=== PATIENT | female | born 1995 | race Caucasian/White ===

== ENCOUNTER 2022-03-07 03:11 | Inpatient (IN) ==
[2022-03-07] MEDS ORDERED: LIDOCAINE 1% LOCAL 20 ML VIAL INFIL PRN (05:39)
[2022-03-07] MEDS ORDERED: OXYTOCIN 30 UNITS/500 ML BAG IV PRN ×3 (05:39→17:07)
[2022-03-07] MEDS ORDERED: PENICILLIN G POTASSIUM 6 MU in DEXTROSE 5% 250 ML IV STA (05:39)
[2022-03-07] MEDS: LACTATED RINGER'S 1,000 ML IV PRN ×2 (06:12→11:01)
[2022-03-07 06:19] LABS: Hematocrit (blood only) 33.4 % (34.1-44.9); Hemoglobin 11.3 g/dl (12.0-16.0); Mean Corpuscular Hemoglobin 30.9 pg (25.0-34.0); Mean Corpuscular Hgb Conc 33.8 g/dL (32.0-36.0); Mean Corpuscular Volume 91.3 fL (80.0-100.0); Mean Platelet Volume 11.2 fL (9.4-12.3); Platelet Count 301 K/uL (130-400); RDW Coefficient of Variation 13.9 % (11.5-14.5); RDW Standard Deviation 45.6 fL (36.4-46.3); Red Blood Count 3.66 M/uL (3.93-5.22); White Blood Count 18.89 K/ul (4.8-10.8)
--- NOTE | 2022-03-07 07:31 | History & Physical Report ---
Date of Service March 07, 2022 Assessment & Plan (1) PROM (premature rupture of membranes): (2) Post term over 40 weeks: (3) Group beta Strep positive: Plan admit, iv, labs. rec pitocin induction. pt agrees. fhts categ 1. Admission and Anticipated Discharge Date Admission Date: March 07, 2022 History of Present Illness Chief Complaint: leaking fluid since 1AM Primary Care Provider: WES Reed 26yo at 40+wks ega presents to L&D with cc of leaking clear fluid on and off and some ctx. Patient notes getting up from bed with some gushing of fluid. Not soaking pads. No bleeding. +FM. PNC c/b 1. GBS pos 2. hypothyroid 3. tobacco PNL rh pos, ri, gbs pos OBH: g1 GYNH: no stds, nl paps Allergies Allergy/AdvReac Type Severity Reaction Status Date / Time prednisone Allergy Intermediate legs went Verified 03/01/22 15:18 numb Home Medications Medication Instructions Recorded Confirmed Type albuterol sulfate 90 mcg/actuation 2 puff inhalation Q6H PRN 02/17/21 03/07/22 Rx aerosol inhaler (Ventolin HFA) Shortness Of Breath #18 grams prenat.vits,laurie,mij-qjor-[id number] 1 tab PO DAILY 09/21/21 03/07/22 History levothyroxine 88 mcg tablet 88 mcg PO DAILY #90 tabs 10/20/21 03/07/22 Rx lansoprazole 30 mg capsule,delayed 30 mg PO DAILY #30 caps 01/25/22 03/07/22 Rx release (Prevacid) Patient History Medical History Anxiety Asthma inhaler prn Back problem COVID-19 (05/13/20) Symptoms started may 09, 2020 Depression Elevated TSH First noted 05/06/2019-normal T4 GERD (gastroesophageal reflux disease) History of bronchitis Irregular menstrual bleeding Scoliosis Tonsillith Surgical History History of esophagogastroduodenoscopy (EGD) History of tooth extraction Family History (Updated 12/07/21 @ 15:51 by Ade Aguila RN) Grandfather (Maternal) Myocardial infarction Grandmother Myocardial infarction Grandfather (Paternal) Diabetes Family hx of colon cancer Grandmother (Paternal) Diabetes Sister Diabetes Aunt Diabetes Cancer Mother Diabetes Father Diabetes Other Family history non-contributory Heart disease No family history of adverse response to anesthesia Denies family history of Ovarian cancer Prostate cancer Breast cancer Lung cancer Colorectal cancer Social History Smoking Status: Current every day smoker Tobacco Type: Cigarettes Age Started Using Tobacco: 20; Age Quit Using Tobacco: 26; packs per day: 0.5; Cigarettes Per Day: 10; Second Hand Exposure: No; Hx Alcohol Use: No Hx Substance Use: No Preferred Language: Stateless Communication Ability: Effective Visual Impairment: No Limitations Hearing Ability: Normal Welder Operator Required: No Beliefs That Will Affect Care: None marital status: Single marital status details: kaity Ghotra (20) [phone] Current Living Situation: Significant Other Current Living Situation Comment: lives with kaity and his parents, cat-kaity alana nging litter current occupational status: employed 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[employer] How many Children do You have: 0 Other Information That Helps Us Care for You: No Feels Safe at Home: Yes Safety Concerns: Feels Safe At This Time Childhood Exposure to Second-Hand Smoke: Yes caffeine: Yes (coffee,soda) during the past year weight has: remained stable Dental Care, Regularly: Yes Physical Activity Frequency: Does not Exercise Seatbelt Use: sometimes Sunscreen Use: No Assistive Devices: None and Glasses Review of Systems as per Subjective / HPI Physical Exam Constitutional: WD/WN, vitals as above Respiratory: normal respiratory effort, lungs clear to auscultation Cardiovascular: Rate/Rhythm: regular rate and regular rhythm Gastrointestinal (Abdomen): soft gravid nt Musculoskeletal: no edema nontender calves Neurologic: grossly normal Psychiatric: A+Ox3, euthymic affect Genitourinary: OB Exam Abdomen: + vertex and + estimated weight (7-8#) Manual OB Exam: + cervical dilation 1 cm, + cervical effacement 60% and + stat ion -2 OB Exam Monitor Tracing: + external FHT monitor used, + external uterine monitor used (q2-4), + category I and + normal FHT variability SSE mucus and watery fluid noted. +nitrazine. +ferning. Results & Data ([facility]) Vital Signs (Past 12 Hours) Vital Signs Temp Pulse Resp BP 03/07/22 03:39 98.1 F 92 H 18 122/83 03/07/22 07:05 75 123/78 03/07/22 06:25 98.2 F 77 18 119/77 03/07/22 03:30 98.1 F 92 H 18 122/83 Coding Level of Care Code None Diagnoses PROM (premature rupture of membranes) O42.90 Post term over 40 weeks O48.0 Group beta Strep positive B95.1
[2022-03-07] MEDS ORDERED: fentaNYL citrate 100 MCG/2 ML VIAL ONE (09:54)
[2022-03-07] MEDS ORDERED: SODIUM CHLORIDE 0.9% INJ 10 ML VIAL ONE (09:54)
[2022-03-07] MEDS ORDERED: ePHEDrine sulfate 50 MG/ML AMP ONE (09:54)
[2022-03-07] MEDS ORDERED: fentaNYL 2MCG/ML ROPIVACAINE 1.25MG/ML 100 ML BAG EPI ONE (09:55)
[2022-03-07] MEDS ORDERED: LIDOCAINE 2%/EPINEPHRINE 1:200,000 20 ML SDV ONE (09:55)
[2022-03-07] MEDS ORDERED: BUPIVACAINE 0.25% 30 ML VIAL ONE (09:55)
--- NOTE | 2022-03-07 10:02 | Anesthesiology Consultation ---
Date of Service March 07, 2022 Assessment & Plan (1) Encounter for pre-operative examination: Chart Review Chart Review: Acceptable Risk for Labor Epidural History Height/Weight Height: 5 ft 2 in Weight: 93.44 kg Allergies Allergy/AdvReac Type Severity Reaction Status Date / Time prednisone Allergy Intermediate legs went Verified 03/01/22 15:18 numb Medications Home Medications Medication Instructions Recorded Confirmed Last Taken albuterol sulfate 90 mcg/actuation 2 puff inhalation Q6H PRN 02/17/21 03/07/22 Unknown aerosol inhaler (Ventolin HFA) Shortness Of Breath #18 grams prenat.vits,laurie,mwf-umwh-unxib 1 tab PO DAILY 09/21/21 03/07/22 03/06/22 levothyroxine 88 mcg tablet 88 mcg PO DAILY #90 tabs 10/20/21 03/07/22 03/06/22 lansoprazole 30 mg capsule,delayed 30 mg PO DAILY #30 caps 01/25/22 03/07/22 03/06/22 release (Prevacid) Active Medications Generic Name Dose Route Start Last Admin Trade Name Rivas PRN Reason Stop Dose Admin Lactated Ringer's 1,000 mls @ 125 mls/hr 03/07/22 05:39 03/07/22 06:12 Lr IV 03/09/22 05:38 125 mls/hr .Q8H PRN Administration L&D Protocol Protocol Oxytocin 30 units in 500 mls @ 5 mls/hr 03/07/22 05:48 03/07/22 07:30 Pitocin IV 04/06/22 05:47 0.3 units/hr .Q24H PRN 5 mls/hr Labor Induction/Augmentation Titration Protocol 0.3 UNITS/HR Past Medical History Medical History Anxiety Asthma inhaler prn Back problem COVID-19 (05/13/20) Symptoms started may 09, 2020 Depression Elevated TSH First noted 05/06/2019-normal T4 GERD (gastroesophageal reflux disease) History of bronchitis Irregular menstrual bleeding Scoliosis Tonsillith Past Family History Family History Grandfather (Maternal) Myocardial infarction Grandmother Myocardial infarction Grandfather (Paternal) Diabetes Family hx of colon cancer Grandmother (Paternal) Diabetes Sister Diabetes Aunt Diabetes Cancer Mother Diabetes Father Diabetes Other Family history non-contributory Heart disease No family history of adverse response to anesthesia Denies family history of Ovarian cancer Prostate cancer Breast cancer Lung cancer Colorectal cancer Past Surgical History Surgical History History of esophagogastroduodenoscopy (EGD) History of tooth extraction Social History Smoking Status: Current every day smoker tobacco type: cigarettes Smoking cigarettes per day: 10 Hx Alcohol Use: No alcohol intake frequency: holidays/special occasions only Hx Substance Use: No substance use type: does not use Physical Exam Vital Signs Last Vital Signs Temp 36.8 C 03/07/22 09:06 Pulse 79 03/07/22 09:06 Resp 20 03/07/22 09:06 BP 127/76 03/07/22 09:06 Testing Laboratory Results 03/07/22 06:02
[2022-03-07] MEDS: PENICILLIN G POTASSIUM 3 MU in DEXTROSE 5% 100 ML IV PRN ×2 (10:05→14:05)
[2022-03-07] MEDS ORDERED: fentaNYL 2MCG/ML ROPIVACAINE 1.25MG/ML 100 ML BAG EPI PRN (11:10)
[2022-03-07] MEDS ORDERED: NALOXONE HCL 0.4 MG/1 ML VIAL/CARP IV PRN (11:10)
[2022-03-07] MEDS ORDERED: ePHEDrine sulfate 50 MG/ML AMP IV PRN (11:10)
[2022-03-07] MEDS ORDERED: NALOXONE HCL 1 MG in SODIUM CHLORIDE 0.9% 1000ML 1,000 ML IV PRN (11:10)
[2022-03-07] MEDS ORDERED: ONDANSETRON INJ 2 MG/ML 2 ML VIAL IV PRN (11:10)
[2022-03-07] MEDS ORDERED: LACTATED RINGER'S 1,000 ML IV SCH (17:07)
[2022-03-07] MEDS ORDERED: ACETAMINOPHEN 325 MG TAB PO PRN (17:07)
[2022-03-07] MEDS ORDERED: oxyCODONE/ACETAMINOPHEN 5mg/325mg TAB PO PRN (17:07)
[2022-03-07] MEDS ORDERED: bisacodyL 10 MG SUPP PR PRN (17:07)
[2022-03-07] MEDS ORDERED: BENZOCAINE 20% AER SPR 82.5 GM CAN EXT PRN (17:07)
[2022-03-07] MEDS ORDERED: DIPHTHERIA/TETANUS/PERTUSSIS 0.5 ML SYR/VIAL IM ONE (17:07)
[2022-03-07] MEDS ORDERED: HYDROCORTISONE ACETATE 25 MG SUPP PR PRN (17:07)
[2022-03-07] MEDS ORDERED: ALBUTEROL HFA 8 GM INHALER INH PRN (17:07)
--- NOTE | 2022-03-07 17:19 | Delivery Summary ---
Vaginal Delivery Summary Date of Service March 07, 2022 Vaginal Delivery Summary DIAGNOSES: 1. Rahman intrauterine at 40w3d gestation. 2. PROM, followed by augmentation of labor. 3. Group B Streptococcus Pos, adequately treated. PROCEDURE: Spontaneous vaginal delivery and repair of partial 3rd degree laceration. SURGEON: Janey Escoto MD. TYPING POOL SUPERVISOR: None. ESTIMATED BLOOD LOSS: 250 mL. COMPLICATIONS: None. PLACENTA: Spontaneous and intact with a 3-vessel cord. DISPOSITION: Stable to labor and delivery. DESCRIPTION: The patient pushed well and brought the head to in DOA position. The infant's head was allowed to deliver with contraction force and no further active pushing, with the perineum protected during this time. Despite protection of the perineum, a significant natural tear in the perineal skin did occur as the L fist presented compound alongside the face, and was located right at the perineum. There was a loose nuchal cord. The left shoulder was anterior. The shoulders and body delivered without any difficulty, and the infant was placed on the maternal abdomen. It was vigorous and moving all extremities, and making respiratory efforts. The cord was doubly clamped by the MD and then cut by the FOB. The placenta delivered spontaneously and was noted to be intact and with a 3VC. The cervix, vagina and perineum were examined and were found to have a second degree laceration plus an abrasion of the capsule of the anal sphincter, thus a "partial third degree." The sphincter itself was intact; the disrupted portion of the capsule was oversewn with a figure of eight suture of 1-vicryl. The remaining second degree laceration, which extended about mcfp up the vaginal vault, was repaired in the usual manner with 3-0 vicryl in a running locked manner on the posterior vagina, with a 2-0 vicryl used to create several crown sutures rebuilding the perineal body, and subcuticular closure of the perineal skin. Digital exam confirmed there was no anal/rectal injury and no suture in the rectum after repair. The fundus was firm and lochia minimal immediately after delivery. [facility] [place] Vaginal Delivery Codes: 85140 global code for the antepartum, delivery, and post-
--- NOTE | 2022-03-07 17:28 | Anesthesia Procedure Note ---
Date of Service March 07, 2022 Anesthesia Post Epidural Note Vital Signs Vital Signs: Temp Pulse Resp BP Pulse Ox 36.8 C 88 20 126/72 97 03/07/22 15:02 03/07/22 17:14 03/07/22 15:02 03/07/22 17:14 03/07/22 16:44 Notes Mental Status: alert / awake / arousable and participated in evaluation Nausea / Vomiting: adequately controlled Pain: adequately controlled Airway Patency, RR, SpO2: stable & adequate BP & HR: stable & adequate Hydration State: stable & adequate Neuraxial Anesthesia: was administered and sensory block is resolving Anesthetic Complications: no major complications apparent Epidural: Removed without complications and With tip intact
[2022-03-07] MEDS: IBUPROFEN 600 MG TAB PO PRN (21:08)
[2022-03-07] MEDS: DOCUSATE SODIUM 100 MG CAP PO SCH (21:08)
[2022-03-08] MEDS: IBUPROFEN 600 MG TAB PO PRN ×4 (02:21→20:18)
--- NOTE | 2022-03-08 06:30 | Obstetrical Progress Note ---
Date of Service <Master Jack DO - Last Filed: 03/08/22 06:29> March 08, 2022 Assessment & Plan <Master Jack DO - Last Filed: 03/08/22 06:29> (1) Vaginal delivery: - Feels well today. Eating well, voiding well, ambulating well. - Pain well controlled with ibuprofen 600mg Q4H PRN - Routine care -- OOB, ambulation, diet progression as tolerated - After discharge will have 6 week follow-up with Dr. Escoto. Day #:: 1 <Janey Escoto MD - Last Filed: 03/08/22 07:10> (1) Vaginal delivery: Subjective <Master Jack DO - Last Filed: 03/08/22 06:29> Ambulation: ambulating normally Voiding: no voiding problems Passing Gas:: Yes Diet Tolerance:: regular diet Lochia:: Small Feeding Type:: breast feeding Current Pain Level(1-10): 4 Review of Systems Denies fever, chills, sweats Denies shortness of breath, difficulty breathing, chest pain, palpitations, chest pressure. Denies breast pain. Denies dysuria. Denies headache or changes in vision. Physical Exam <Master Jack DO - Last Filed: 03/08/22 06:29> General: Alert, oriented. No acute distress. Cardiac: Regular rate and rhythm, no murmurs/rubs/gallops. Respiratory: Clear to auscultation bilaterally a/p, no wheezes/rales/rhonchi. No increased work of breathing. Symmetrical chest rise. No respiratory distress. Abdomen: Soft, nontender, nondistended. Bowel sounds present. Uterus: Uterine fundus firm, palpable 3 cm below umbilicus. Lower Extremities: No lower extremity edema or swelling. No deep calf pain. Charlie's negative bilaterally. Results & Data ([facility]) <Master Jack DO - Last Filed: 03/08/22 06:29> Vital Signs (Past 12 Hours) Vital Signs Temp Pulse Pulse Resp BP BP Pulse Ox 03/08/22 03:20 36.5 C 95 H 16 126/80 97 03/07/22 23:15 36.9 C 85 16 112/72 97 03/07/22 19:45 37.2 C 111 H 18 134/84 97 03/07/22 19:15 37.1 C 120 H 18 128/77 03/07/22 19:00 100 H 113/68 03/07/22 18:45 94 H 128/72 03/07/22 18:29 99 H 128/87 O2 Del Method 03/08/22 03:20 Room Air 03/07/22 23:15 Room Air 03/07/22 19:45 Room Air 03/07/22 19:15 03/07/22 19:00 03/07/22 18:45 03/07/22 18:29 <Janey Escoto MD - Last Filed: 03/08/22 07:10> Co-Signing Physician Notes Resident Physician Supervision Note: I interviewed and examined the patient. Discussed with Dr. Jack and agree with findings and plan as documented in the note. Any exceptions or clarifications are listed here: [ ] Documented By: Janey Escoto MD, FACOG Resident Activity Tracking <Master Jack DO - Last Filed: 03/08/22 06:29> Resident Involvement: Resident Care Provided Care Provided: OB Delivery
[2022-03-08 06:34] LABS: Hematocrit (blood only) 25.9 % (34.1-44.9); Hemoglobin 8.8 g/dl (12.0-16.0); Mean Corpuscular Hemoglobin 30.8 pg (25.0-34.0); Mean Corpuscular Volume 90.6 fL (80.0-100.0); Mean Platelet Volume 11.5 fL (9.4-12.3); Platelet Count 230 K/uL (130-400); RDW Coefficient of Variation 13.7 % (11.5-14.5); RDW Standard Deviation 45.1 fL (36.4-46.3); Red Blood Count 2.86 M/uL (3.93-5.22); White Blood Count 17.24 K/ul (4.8-10.8)
[2022-03-08] MEDS: PRENATAL VITAMIN 1 TAB PO SCH (08:26)
[2022-03-08] MEDS: DOCUSATE SODIUM 100 MG CAP PO SCH ×2 (08:26→20:18)
[2022-03-08] MEDS: LEVOTHYROXINE SODIUM 88 MCG TABLET PO SCH (08:38)
[2022-03-08] MEDS: PANTOprazole 40 MG TAB PO SCH (08:38)
[2022-03-08] MEDS ORDERED: MEASLES, MUMPS & RUBELLA VIRUS VIAL SQ ONE (08:59)
[2022-03-08] MEDS ORDERED: PRENATAL VITAMIN 1 TAB PO SCH (09:00)
[2022-03-08] MEDS ORDERED: bisacodyL 5 MG TABEC PO SCH (20:00)
[2022-03-09] MEDS: IBUPROFEN 600 MG TAB PO PRN (06:26)
--- NOTE | 2022-03-09 06:50 | Obstetrical Progress Note ---
Date of Service <Master Jack DO - Last Filed: 03/09/22 07:47> March 09, 2022 Assessment & Plan <Master Jack DO - Last Filed: 03/09/22 07:47> (1) Vaginal delivery: - Feels well today. Eating well, voiding well, ambulating well. - Pain well controlled with ibuprofen 600mg Q4H PRN - Routine care -- OOB, ambulation, diet progression as tolerated - After discharge will have 6 week follow-up with Dr. Escoto. - Will D/C today. Day #:: 2 <Clarissa Persaud, DO - Last Filed: 03/09/22 08:14> (1) Vaginal delivery: Subjective <Master Jack DO - Last Filed: 03/09/22 07:47> Ambulation: ambulating normally Voiding: no voiding problems Passing Gas:: Yes Diet Tolerance:: regular diet Lochia:: Small Feeding Type:: breast feeding Current Pain Level(1-10): 2 Review of Systems Denies fever, chills, sweats Denies shortness of breath, difficulty breathing, chest pain, palpitations, chest pressure. Denies breast pain. Denies dysuria. Denies headache or changes in vision. Physical Exam <Master Jack DO - Last Filed: 03/09/22 07:47> General: Alert, oriented. No acute distress. Cardiac: Regular rate and rhythm, no murmurs/rubs/gallops. Respiratory: Clear to auscultation bilaterally a/p, no wheezes/rales/rhonchi. No increased work of breathing. Symmetrical chest rise. No respiratory distress. Abdomen: Soft, nontender, nondistended. Bowel sounds present. Uterus: Uterine fundus firm, palpable 3 cm below umbilicus. Lower Extremities: No lower extremity edema or swelling. No deep calf pain. Charlie's negative bilaterally. Results & Data ([facility]) <Master Jack DO - Last Filed: 03/09/22 07:47> Vital Signs (Past 12 Hours) Vital Signs Temp Pulse Resp BP Pulse Ox O2 Del Method 03/08/22 23:30 36.7 C 85 18 122/77 97 Room Air <Clarissa Persaud, DO - Last Filed: 03/09/22 08:14> Co-Signing Physician Notes Resident Physician Supervision Note: I was present with Dr. Jack during the history and exam. I discussed the case with the resident and agree with the findings and plan as documented in the note. Any exceptions or clarifications are listed here: PPD#2 doing well, reviewed discharge instructions. DC home, followup in office 6w. Documented By: Clarissa Persaud DO Resident Activity Tracking <Master Jack, - Last Filed: 03/09/22 07:47> Resident Involvement: Resident Care Provided Care Provided: OB Delivery
[2022-03-09] MEDS: PANTOprazole 40 MG TAB PO SCH (07:34)
[2022-03-09] MEDS: LEVOTHYROXINE SODIUM 88 MCG TABLET PO SCH (07:34)
[2022-03-09 08:10] VITALS: BP 123/82; PULSE 88; TEMP 98.4; O2SAT 96
[2022-03-09] MEDS: DOCUSATE SODIUM 100 MG CAP PO SCH (08:31)
[2022-03-09] MEDS: PRENATAL VITAMIN 1 TAB PO SCH (08:31)
[2022-03-09 09:01] LABS: Hematocrit (blood only) 27.4 % (34.1-44.9); Hemoglobin 9.3 g/dl (12.0-16.0)
== END 2022-03-09 13:05 | disposition home or self-care (01) | DRG 768 ==
LOC: OPB 03:11 → 4S1 03:16 → 4E2 19:55

== ENCOUNTER 2023-03-06 07:47 | Inpatient (IN) ==
[2023-03-06] MEDS ORDERED: LIDOCAINE 1% LOCAL 20 ML VIAL INFIL PRN (08:38)
[2023-03-06] MEDS ORDERED: OXYTOCIN 30 UNITS/NSS 30 UNITS/500 ML BAG IV PRN ×3 (08:38→17:06)
[2023-03-06] MEDS ORDERED: LANSOPRAZOLE 30 MG SOLTAB PO ONE (08:43)
[2023-03-06] MEDS ORDERED: PENICILLIN GK 6 MU in DEXTROSE 5% 250 ML IV STA (08:50)
--- NOTE | 2023-03-06 08:59 | History & Physical Report ---
Date of Service March 06, 2023 Assessment & Plan (1) Encounter for induction of labor: (2) Group B streptococcal infection during : Plan 27 y/o female currently at 40 2/7 WGA with an LUPIS 03/04/23 as determined by ultrasound, who is here for IOL: Pitocin AROM when indicated Monitor FHT Rh + GBS +, intrapartum penicillin Admission and Anticipated Discharge Date Admission Date: March 06, 2023 History of Present Illness Primary Care Provider: WES Reed 27 y/o female currently at 40 2/7 WGA with an LUPIS 03/04/23 as determined by ultrasound, who is here for IOL. Had regular appointments with OB Denies Contractions + movement Denies Fluid loss Denies Vaginal bleeding External FHT and external uterine monitors used OB Labs: Blood Type O Positive 01/26/23 Antibody Screen NEGATIVE 01/26/23 Hemoglobin 10.2 g/dl (12.0-16.0) L 01/26/23 Hematocrit 31.6 % (37.0-47.0) L 01/26/23 Mean Corpuscular Volume 90.3 fL (80.0-100.0) 01/26/23 Platelet Count 256 K/uL (130-400) 01/26/23 Rubella IgG Antibody Immune (Immune) 08/02/22 Rapid Plasma Reagin Nonreactive (Nonreactive) 08/02/22 Hepatitis B Surface Antigen. NON-REACTIVE (NON-REACTIVE) 08/02/22 Hepatitis C Antibody (EIA) NON-REACTIVE (NON-REACTIVE) 08/02/22 HIV (1&2) Ag and Ab Confirmation NON-REACTIVE (NON-REACTIVE) 08/02/22 Glucose 1 Hour 50 gm Load 95 mg/dl (70-130) 12/13/22 Maternal Serum Alpha Fetoprotein 27.8 ng/mL 09/21/21 OB Optional Labs: Chlamydia trachomatis RNA Not Detected (NotDetected) 08/02/22 Neisseria gonorrhoeae RNA Not Detected (NotDetected) 08/02/22 Thyroid Stimulating Hormone (TSH) 2.244 uIu/ml (0.300-4.500) 02/21/23 Alpha Fetoprotein Triple Screen SEE NOTE 09/21/21 Labs Reviewed: cf/sma neg prior -antonella afp neg--akh gbs positive--akh Allergies Allergy/AdvReac Type Severity Reaction Status Date / Time prednisone Allergy Intermediate legs went Verified 03/06/23 08:36 numb Home Medications Medication Instructions Recorded Confirmed Type albuterol sulfate 90 mcg/actuation 2 puff inhalation Q6H PRN 02/17/21 03/06/23 Rx aerosol inhaler (Ventolin HFA) Shortness Of Breath #18 grams prenat.vits,laurie,[id number]-[id number] 1 tab PO DAILY 07/28/22 03/06/23 History lansoprazole 30 mg capsule,delayed 30 mg PO DAILY #90 caps 09/27/22 03/06/23 Rx release (Prevacid) levothyroxine 100 mcg tablet 100 mcg PO DAILY #90 tabs 02/08/23 03/06/23 Rx Patient History Medical History Gallstone Hypothyroid Back problem Irregular menstrual bleeding COVID-19 (05/13/20) Scoliosis GERD (gastroesophageal reflux disease) Anxiety Tonsillith Depression Asthma Surgical History History of esophagogastroduodenoscopy (EGD) History of tooth extraction Family History Grandfather (Maternal) Myocardial infarction Grandmother Myocardial infarction Grandfather (Paternal) Diabetes Family hx of colon cancer Grandmother (Paternal) Diabetes Sister Diabetes Aunt Diabetes Cancer Ovarian cancer Mother Diabetes Father Diabetes Other Family history non-contributory Heart disease No family history of adverse response to anesthesia Denies family history of Prostate cancer Breast cancer Lung cancer Colorectal cancer Social History Smoking Status: Former smoker Tobacco Type: Cigarettes Age Started Using Tobacco: 20; Age Quit Using Tobacco: 26; packs per day: 0.5; Cigarettes Per Day: 10; Smoking End Date: 07/2022; Second Hand Exposure: No; Do You Dip or Chew Tobacco: No; Tobacco Cessation Education Requested by Patient: No Hx Alcohol Use: No Hx Substance Use: No Preferred Language: Russian Communication Ability: Effective Visual Impairment: No Limitations Hearing Ability: Normal Toolroom Clerk Required: No Beliefs That Will Affect Care: None marital status: Single marital status details: fob Zoltan Ghotra (20) [phone] Current Living Situation: Family Current Living Situation Comment: boyfriend and daughter current occupational status: employed 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[employer] How many Children do You have: 0 Other Information That Helps Us Care for You: No Feels Safe at Home: Yes Safety Concerns: Feels Safe At This Time Childhood Exposure to Second-Hand Smoke: Yes Diet: regular Diet Comment: Regular caffeine: Yes (coffee,soda) during the past year weight has: remained stable Dental Care, Regularly: Yes Physical Activity Frequency: Daily Seatbelt Use: sometimes Sunscreen Use: No Assistive Devices: None Review of Systems denies chest pain or SOB denies fever/chills denies VALDEZ/changes in vision denies dysuria denies LE pain Physical Exam Physical Exam: General: Alert and oriented. No acute distress Cardiac: Regular rate and rhythm, no murmurs appreciated Respiratory: Lungs clear to auscultation bilaterally, No increased work of breathing Abdominal: Soft, non-tender, non-distended. Bowel sounds present. Gravid uterus. Extremities: No lower extremity edema, calves non-tender bilaterally Results & Data Vital Signs (Past 12 Hours) Vital Signs Temp Pulse Resp BP 03/06/23 07:59 20 03/06/23 07:59 36.7 C 20 03/06/23 07:58 99 H 120/71 Supervising Physician Co-Signing Physician Notes Resident Physician Supervision Note: I interviewed and examined the patient. Discussed with Dr. Iglesias and agree with findings and plan as documented in the note. Any exceptions or clarifications are listed here: Being admitted for postdates induction. Previous successful vaginal delivery. cx favorable, on my exam today is 4/80/-2. Plan pit induction, arom when indicated, epidural on demand. minimal contractions, fetus categroy one. anticipate . Documented By: Lory Hu MD, FACOG Resident Activity Tracking Resident Involvement: Resident Care Provided Care Provided: OB Delivery
[2023-03-06] MEDS: LACTATED RINGER'S 1,000 ML IV PRN ×2 (09:15→12:37)
[2023-03-06 09:32] LABS: Hematocrit (blood only) 29.9 % (37.0-47.0); Hemoglobin 9.7 g/dl (12.0-16.0); Mean Corpuscular Hemoglobin 27.8 pg (25.0-34.0); Mean Corpuscular Hgb Conc 32.4 g/dL (32.0-36.0); Mean Corpuscular Volume 85.7 fL (80.0-100.0); Mean Platelet Volume 11.1 fL (9.4-12.4); Platelet Count 266 K/uL (130-400); RDW Coefficient of Variation 14.8 % (11.5-14.5); RDW Standard Deviation 45.3 fL (36.4-46.3); Red Blood Count 3.49 M/uL (4.20-5.40); White Blood Count 14.28 K/ul (4.8-10.8)
[2023-03-06] MEDS ORDERED: PENICILLIN GK 3 MU in DEXTROSE 5% 100 ML IV PRN (11:39)
[2023-03-06] MEDS ORDERED: fentaNYL citrate PF 100 MCG/2 ML VIAL ONE (12:21)
[2023-03-06] MEDS ORDERED: ePHEDrine sulfate 50 MG/ML AMP ONE (12:22)
[2023-03-06] MEDS ORDERED: LIDOCAINE 2%/EPINEPHRINE 1:200,000 20 ML PF ONE (12:22)
[2023-03-06] MEDS ORDERED: BUPIVACAINE 0.25% PF 30 ML VIAL ONE (12:22)
[2023-03-06] MEDS ORDERED: fentANYL 2 MCG/ML BUPIVacaine 0.125%-NSS 100ML BAG ONE (12:22)
[2023-03-06] MEDS ORDERED: SODIUM CHLORIDE 0.9% PF INJ 10 ML VIAL ONE (12:22)
--- NOTE | 2023-03-06 12:55 | Anesthesiology Consultation ---
Date of Service March 06, 2023 Assessment & Plan Chart Review Chart Review: Acceptable Risk for Labor Epidural Consults Requested none History Height/Weight Height: 5 ft 2 in Weight: 94.347 kg Allergies Allergy/AdvReac Type Severity Reaction Status Date / Time prednisone Allergy Intermediate legs went Verified 03/06/23 08:36 numb Medications Home Medications Medication Instructions Recorded Confirmed Last Taken albuterol sulfate 90 mcg/actuation 2 puff inhalation Q6H PRN 02/17/21 03/06/23 Unknown aerosol inhaler (Ventolin HFA) Shortness Of Breath #18 grams prenat.vits,laurie,eag-absd-uivrg 1 tab PO DAILY 07/28/22 03/06/23 03/05/23 lansoprazole 30 mg capsule,delayed 30 mg PO DAILY #90 caps 09/27/22 03/06/23 03/05/23 release (Prevacid) levothyroxine 100 mcg tablet 100 mcg PO DAILY #90 tabs 02/08/23 03/06/23 03/05/23 Active Medications Generic Name Dose Route Start Last Admin Trade Name Hguoq PRN Reason Stop Dose Admin Oxytocin 30 units in 500 mls @ 9 mls/hr 03/06/23 08:38 03/06/23 12:50 Pitocin 30 Units/Nss IV 03/08/23 08:37 0.54 units/hr .Q24H PRN 9 mls/hr Labor Induction/Augmentation Titration Protocol 0.54 UNITS/HR Lactated Ringer's 1,000 mls @ 125 mls/hr 03/06/23 08:38 03/06/23 12:37 Lr IV 03/08/23 08:37 125 mls/hr .Q8H PRN Administration L&D Protocol Protocol Past Medical History Medical History Gallstone Hypothyroid Back problem Irregular menstrual bleeding COVID-19 (05/13/20) Scoliosis GERD (gastroesophageal reflux disease) Anxiety Tonsillith Depression Asthma Past Family History Family History Grandfather (Maternal) Myocardial infarction Grandmother Myocardial infarction Grandfather (Paternal) Diabetes Family hx of colon cancer Grandmother (Paternal) Diabetes Sister Diabetes Aunt Diabetes Cancer Ovarian cancer Mother Diabetes Father Diabetes Other Family history non-contributory Heart disease No family history of adverse response to anesthesia Denies family history of Prostate cancer Breast cancer Lung cancer Colorectal cancer Past Surgical History Surgical History History of esophagogastroduodenoscopy (EGD) History of tooth extraction Social History Smoking Status: Former smoker tobacco type: cigarettes Smoking cigarettes per day: 10 Do You Dip or Chew Tobacco: No Smoking End Date: 07/2022 Hx Alcohol Use: No alcohol intake frequency: holidays/special occasions only Hx Substance Use: No substance use type: does not use Physical Exam Vital Signs Last Vital Signs Temp 36.7 C 03/06/23 11:00 Pulse 100 H 03/06/23 12:53 Resp 20 03/06/23 11:00 BP 92/51 L 03/06/23 12:53 Pulse Ox 99 03/06/23 12:53 Testing Laboratory Results 03/06/23 08:50 Blood Type O Positive 03/06/23 08:50 Antibody Screen NEGATIVE 03/06/23 08:50
--- NOTE | 2023-03-06 16:36 | Anesthesia Procedure Note ---
Date of Service March 06, 2023 Anesthesia Post Epidural Note Vital Signs Vital Signs: Temp Pulse Resp BP Pulse Ox 36.8 C 94 H 20 122/58 L 99 03/06/23 15:00 03/06/23 16:19 03/06/23 15:00 03/06/23 16:19 03/06/23 16:18 Notes Mental Status: alert / awake / arousable Nausea / Vomiting: adequately controlled Pain: adequately controlled Airway Patency, RR, SpO2: stable & adequate BP & HR: stable & adequate Hydration State: stable & adequate Neuraxial Anesthesia: was administered and sensory block is resolving Anesthetic Complications: no major complications apparent and Pt Satisfied with anesthetic care Epidural: Removed without complications and With tip intact
--- NOTE | 2023-03-06 16:41 | Delivery Summary ---
Vaginal Delivery Summary Date of Service March 06, 2023 Vaginal Delivery Summary and 2nd Degree LAC Pre-operative Diagnosis: at 40 weeks iol Post-operative Diagnosis: same Procedure: pitocin induction epidural arom second degree laceration and repair EBL: 350cc Anesthesia: epidural Procedure: Patient presented for postdates iol. STarted with piocin, got epidural and then arom. She progressed to c/c/+2. The patient pushed for 4 minutes to deliver a viable female in piero position with a compound arm. The anterior right shoulder was delivered with Edwar and maternal effort. The rest of the infant was then delivered without difficulty. The baby was vigorous. The nose and mouth were again bulb suctioned and the infant was placed in the maternal abdomen for drying and attention. Cord was clamped and cut at about one minute of life. Cord blood and segment obtained. Placenta delivered spontaneous, intact with a three vessel cord. Cervix/sulci/rectum were intact. A second degree perineal laceration was repaired in the normal standard fashion. Hemostasis obtained with dilute pitocin and fundal massage. Apgars were 8/9. Mother and baby doing well at the end of the delivery. [facility] [place] Vaginal Delivery Charge Delivery Type Details: and 2nd Degree LAC
[2023-03-06] MEDS ORDERED: BENZOCAINE 20% SPRY 85 APPLN/85 GM CAN EXT PRN (17:06)
[2023-03-06] MEDS ORDERED: ACETAMINOPHEN 325 MG TAB PO PRN (17:06)
[2023-03-06] MEDS ORDERED: oxyCODONE/ACETAMINOPHEN 5mg/325mg TAB PO PRN (17:06)
[2023-03-06] MEDS ORDERED: DIPHTHERIA/TETANUS/PERTUSSIS Vaccine (Tdap, Age 7+yrs) 0.5mL SYR/VL IM ONE (17:06)
[2023-03-06] MEDS ORDERED: ALBUTEROL HFA 8 GM INHALER INH PRN (17:06)
[2023-03-06] MEDS ORDERED: bisacodyL 10 MG SUPP PR PRN (17:06)
[2023-03-06] MEDS: DOCUSATE SODIUM 100 MG CAP PO SCH (19:24)
[2023-03-06] MEDS: IBUPROFEN 600 MG TAB PO PRN (23:35)
[2023-03-06 23:54] VITALS: O2SAT 98
[2023-03-07] MEDS: IBUPROFEN 600 MG TAB PO PRN ×2 (04:59→14:51)
--- NOTE | 2023-03-07 05:03 | Obstetrical Progress Note ---
Date of Service <Kaushal Iglesias DO - Last Filed: 03/07/23 06:26> March 07, 2023 Assessment & Plan <Kaushal Iglesias DO - Last Filed: 03/07/23 06:26> (1) care following vaginal delivery: Plan 27 year old , PPD#1: Eating well, voiding well, ambulating well Vitals reviewed, WNL Pain well controlled with Motrin Routine post care - OOB, ambulation, diet progression as tolerated Will have 6 week follow up with Dr. Hu <Lory Hu MD, FACOG - Last Filed: 03/07/23 07:13> (1) care following vaginal delivery: Subjective <Kaushal Iglesias DO - Last Filed: 03/07/23 06:26> Ambulation: ambulating normally Voiding: no voiding problems Passing Gas:: Yes Diet Tolerance:: regular diet Lochia:: Moderate Feeding Type:: bottle feeding Pain well controlled with Motrin Review of Systems -Denies fever or chills -Denies dyspnea, chest pain, or palpitations -Denies dysuria -Denies headache or changes in vision Physical Exam <Kaushal Iglesias DO - Last Filed: 03/07/23 06:26> General: Alert and oriented. No acute distress Cardiac: Regular rate and rhythm, no murmurs appreciated Respiratory: Lungs clear to auscultation bilaterally, No increased work of breathing Abdominal: Soft, non-tender, non-distended. Bowel sounds present. Uterus: Uterine fundus firm, palpable below umbilicus Extremities: No lower extremity edema, calves non-tender bilaterally Results & Data <Kaushal Iglesias DO - Last Filed: 03/07/23 06:26> Vital Signs (Past 12 Hours) Vital Signs Temp Pulse Pulse Resp BP BP Pulse Ox 03/07/23 03:05 36.4 C L 97 H 16 108/75 98 03/06/23 23:30 36.6 C 99 H 16 100/67 98 03/06/23 19:20 36.7 C 91 H 16 93/64 L 97 03/06/23 18:21 96 H 117/62 03/06/23 18:20 36.8 C 20 03/06/23 18:06 92 H 112/59 L 03/06/23 17:51 77 103/54 L 03/06/23 17:36 96 H 117/67 03/06/23 17:21 98 H 118/62 03/06/23 17:06 93 H 107/66 O2 Del Method 03/07/23 03:05 Room Air 03/06/23 23:30 Room Air 03/06/23 19:20 Room Air 03/06/23 18:21 03/06/23 18:20 03/06/23 18:06 03/06/23 17:51 03/06/23 17:36 03/06/23 17:21 03/06/23 17:06 Supervising Physician <Lory Hu MD, FACOG - Last Filed: 03/07/23 07:13> Co-Signing Physician Notes Resident Physician Supervision Note: I interviewed and examined the patient. Discussed with Dr. Iglesias and agree with findings and plan as documented in the note. Any exceptions or clarifications are listed here: Doing well. Routine care. Tolerating drop in Hgb. Plan d/c home later today. Instructions reviewed. Documented By: Lory Hu MD, FACOG Resident Activity Tracking <Kaushal Iglesias DO - Last Filed: 03/07/23 06:26> Resident Involvement: Resident Care Provided Care Provided: OB Delivery
[2023-03-07] MEDS ORDERED: LEVOTHYROXINE SODIUM 100 MCG TABLET PO SCH (06:30)
[2023-03-07 06:32] LABS: Hematocrit (blood only) 24.6 % (37.0-47.0); Hemoglobin 7.9 g/dl (12.0-16.0); Mean Corpuscular Hemoglobin 27.8 pg (25.0-34.0); Mean Corpuscular Hgb Conc 32.1 g/dL (32.0-36.0); Mean Corpuscular Volume 86.6 fL (80.0-100.0); Mean Platelet Volume 11.3 fL (9.4-12.4); Platelet Count 222 K/uL (130-400); RDW Coefficient of Variation 14.7 % (11.5-14.5); RDW Standard Deviation 45.6 fL (36.4-46.3); Red Blood Count 2.84 M/uL (4.20-5.40); White Blood Count 12.99 K/ul (4.8-10.8)
[2023-03-07] MEDS: DOCUSATE SODIUM 100 MG CAP PO SCH (07:53)
[2023-03-07] MEDS ORDERED: PRENATAL VITAMIN 1 TAB PO SCH (08:00)
[2023-03-07 08:34] VITALS: RESP 18
[2023-03-07] MEDS ORDERED: PANTOprazole 40 MG TAB PO SCH (09:00)
[2023-03-07 13:45] VITALS: BP 96/68; PULSE 96; TEMP 97.9
[2023-03-07] MEDS ORDERED: bisacodyL 5 MG TABEC PO SCH (20:00)
== END 2023-03-07 17:20 | disposition home or self-care (01) | DRG 807 ==
LOC: 4S1 07:47 → 4E2 19:09